=== PATIENT | male | born 1980 | race Caucasian/White ===

== ENCOUNTER 2020-11-06 10:39 | Emergency (ER) | payer BC ==
[2020-11-06 10:43] VITALS: BP 132/90; PULSE 86; TEMP 98.1; BMI 27.4
[2020-11-06] MEDS ORDERED: IBUPROFEN 600 MG TABLET (FP) PO ONE ×2 (11:26→11:46)
== END 2020-11-06 13:49 | disposition home or self-care (01) ==
LOC: FER 10:39
DX: S92.425A Nondisplaced fracture of distal phalanx of left great toe, initial encounter for closed fracture (principal); W21.07XA Struck by softball, initial encounter; Y92.9 Unspecified place or not applicable
CPT/HCPCS: 73630-TC-LT; 99284-25